=== PATIENT | female | born 1985 | race Hispanic/Latino ===

== ENCOUNTER 2018-01-18 09:53 | Emergency (ER) | payer OTHER ==
[2018-01-18 10:06] VITALS: BMI 30.1
[2018-01-18] MEDS ORDERED: Betamethasone Soluspan 30 mg/5mL Inj Susp IM ONE (10:12)
== END 2018-01-18 12:00 | disposition home or self-care (01) ==
LOC: H.EROB2 09:53
DX: O40.3XX0 Polyhydramnios, third trimester, not applicable or unspecified (principal); Z3A.33 33 weeks gestation of pregnancy; Z23 Encounter for immunization
CPT/HCPCS: 96372; 99281; J0702

== ENCOUNTER 2018-01-19 10:52 | Emergency (ER) | payer OTHER ==
[2018-01-19 11:30] VITALS: BMI 39.4
[2018-01-19] MEDS: Betamethasone Soluspan 30 mg/5mL Inj Susp IM ONE (11:56)
[2018-01-19 17:09] VITALS: BP 105/58; PULSE 58; RESP 17; O2SAT 100
--- NOTE | 2018-01-20 09:11 | OBHP ---
Datetime: 01/19/2018 12:21 IP Adm Impression: , intrauterine IP Chief Complaint Other: Betamethasone Admit Comment, IP Provider: A 32 yo f 33.3wk who present for her secound shot of Betamethasone. Pt is receiving the betamethasone due to polyhydramnios. Pt denies any sign of fever, chills, chest pain, sob, abd pain, diarrhea, constipation, or any other symptoms. Pt denies any side effect of medication. Problems Denies PMH Denies PSH Laparoscopic appendectomy Medications PNV Allergies NKDA Social Denies tobacco, alcohol or drug use during the . OBJECTIVE Vitals reviewed No labs available ASSESSMENT/PLAN: 32 year old G1 at 33 weeks sent to triage for sec dose of betamethasone shot at 3 3 weeks secondary to polyhydramnios Pt will recieve injection and be discharged home. Igor Shaw PGY1 Pelvic Type - PN: Adequate Extremities - PN: Normal Abdomen - PN: Normal Back - PN: Normal Breast - PN: Not Done Lungs - PN: Normal Heart - PN: Normal Thyroid - PN: Normal Neurologic - PN: Normal HEENT - PN: Normal General - PN: Normal Gestation - Est Wks by US: 33.3 Vital Signs Provider: Reviewed; Within Normal Limits Genitourinary Exam: Normal DTRs - PN: Normal Datetime: 01/18/2018 11:00 IP Admit Plan: Discharge home IP Fetus A Comments: Reactive NST FHR - Baseline A Provider: 130 NICHD Variability Prov Fetus A: Moderate 6-25bpm NICHD Accel Fetus A IP Provider: 15X15 NICHD Decel Fetus A IP Provider: None
== END 2018-01-19 13:00 | disposition home or self-care (01) ==
LOC: H.EROB2 10:52 → H.L&D 10:55 → H.EROB2 13:00
DX: O40.3XX0 Polyhydramnios, third trimester, not applicable or unspecified (principal); Z3A.33 33 weeks gestation of pregnancy; Z23 Encounter for immunization
CPT/HCPCS: 96372; 99281; J0702

== ENCOUNTER 2018-01-26 12:58 | Emergency (ER) | payer OTHER ==
[2018-01-26 19:37] VITALS: BP 129/76; PULSE 69; RESP 18
--- NOTE | 2018-01-27 09:19 | OBHP ---
Datetime: 01/26/2018 15:54 IP Adm Impression: No Active Labor IP Admit Plan: Discharge home Admit Comment, IP Provider: PT is a 34.3 wk was sent from [facility]. Pt spoke with Dr Contreras and she s ent her here to be evaluated. Pt denies contraction, vag bleed, discharge, gush of fluid or any other symptoms. ROS negative exept mentioned in HPI OBGYN Dr Contreras med: PNV PMH none PSH none PFH none Social Denies smoke/drink drug use 15:00 Assessment and plan PT is 34.3 wk present due to placenta change. monitoring strip is reassuring. PT is not in acute distress PT will discharge home Recommend BPP for tomorrow Igoravtar Shaw PGY1 Addendum: heart tracing category 1 with good baseline variability and positive accelerations. I called and discussed case with MFM. As per MFM recommendations, plan to discharge patient home today and h ave patient follow up for repeat BPP tomorrow. I discussed plan with patient and all patient question s answered. [place] Pelvic Type - PN: Not Done Extremities - PN: Normal Abdomen - PN: Normal Back - PN: Normal Breast - PN: Not Done Lungs - PN: Normal Heart - PN: Normal Thyroid - PN: Normal Neurologic - PN: Normal HEENT - PN: Normal General - PN: Normal FHR - Baseline A Provider: 140 Gestation - Est Wks by US: 34.3 Genitourinary Exam: Normal DTRs - PN: Normal
== END 2018-01-26 15:30 | disposition home or self-care (01) ==
LOC: H.EROB2 12:58 → H.L&D 13:01 → H.EROB2 15:30
DX: O43.93 Unspecified placental disorder, third trimester (principal); Z3A.34 34 weeks gestation of pregnancy

== ENCOUNTER 2018-01-30 07:54 | Inpatient (IN) | payer OTHER ==
[2018-01-30 08:37] VITALS: BMI 30.1
[2018-01-30] MEDS ORDERED: Lactated Ringer's 1,000 ML IV ONE (08:42)
[2018-01-30] MEDS ORDERED: Oxytocin 30 units/LR 500ML 30 UNITS/500 ML BAG IV ONE ×2 (08:42→09:00)
[2018-01-30] MEDS ORDERED: Lidocaine 1% Inj (20ml) ONE (08:44)
[2018-01-30] MEDS ORDERED: Lactated Ringer's 1,000 ML IV SCH ×2 (08:45→13:17)
[2018-01-30] MEDS ORDERED: Benzocaine/Menthol SPRAY TOP PRN ×2 (09:05→13:17)
--- NOTE | 2018-01-30 09:16 | OBDS ---
MATERNAL INFORMATION Provider Comments: over intact perineum precipitously, in NIRMALA presentation followed by shoulder s and rest of infant, mouth and nose suctioned on mother's chest, cord clamped and cut, cord blood ob tained, placenta delivered spontaneously, fundus firm, no lacerations noted for repair, EWS=[id number] LABOR SUMMARY EDC: 03/06/2018 00:00
--- NOTE | 2018-01-30 09:48 | OBADHP ---
Datetime: 01/30/2018 08:22 Admit Comment, IP Provider: 32 y/o with IUP at EGA 35 wks by 1st trimester US with FLAVIO 03/04, who presntes to EDOB with c/o a gush of vag fluid (LOF) noted at 6:20 AM and unterine CONTX елена t started at 7AM and were increasing in intensity and frequency to Q3min. Patient reports +FM. Faby t reports h/o polyhidramnios during this with f/u by MFM Dr Jeong, she states she receiv ed steroids injection x 2 doses for this reason. Patient denies VB, [place], blurry vision, palpitations, CP,SOB, N/V, dysuria or chills/fever. ROS: unremarkable, except as per HPI. care provider: Dr Contreras OBGYN: Denies STI PMH: denies FMH: denies SurgH: appendectomy. ALL: NKA MEDS: PN VIt LABS: HIV neg, HB neg, Rubella +/immune, GC/CL neg, RPR nonreactive, ABO A+/ab-. PE GEN: Unconfortable, NAD. HEENT: NCAT RESP: CTA b/l CV: RRR, S1 S2 normal ABD: Gravid EXT: no edema PElvic: performed by attending Dr Contreras: Cervix 10CM, EFF 100% A/P 32 y/o with IUP at EGA 35 wks by 1st trimester US with FLAVIO , who presents with ROM at 6:20AM and Uterine CONTx Q3min, with cervix dilated 10 cm in active labor. -Admit to L_D -Monitor maternal VS -Monitor FHR -IVF -CBC, Type and screen -Notify Pediatric MD Case discussed with attending Dr Diane Hackett MD PGY1 Addendum by Dr. Contreras: I have evaluated the patient independently and I agree with the above. THe patient delivered precipitously - see delivery note Comments, ACOG Physical Exam: see admit comment IP Hx Assessment: The History has been Reviewed and is Current Vital Signs Provider: Reviewed IP Chief Complaint: Uterine contractions; Suspected ruptured membranes EGA AdmitDate IP: 35.0 IP Adm Impression: , intrauterine IP Admit Plan: Admit to unit Datetime: 01/30/2018 08:19 Extremities - PN: Normal Abdomen - PN: Normal Lungs - PN: Normal Heart - PN: Normal HEENT - PN: Normal General - PN: Normal Dilatation, Provider: 10 Effacement, Provider: 100 Datetime: 01/26/2018 15:54 Pelvic Type - PN: Not Done Back - PN: Normal Breast - PN: Not Done Thyroid - PN: Normal Neurologic - PN: Normal FHR - Baseline A Provider: 140 Gestation - Est Wks by US: 34.3 Genitourinary Exam: Normal DTRs - PN: Normal Datetime: 01/19/2018 12:21 IP Chief Complaint Other: Betamethasone Datetime: 01/18/2018 11:00 IP Fetus A Comments: Reactive NST NICHD Variability Prov Fetus A: Moderate 6-25bpm NICHD Accel Fetus A IP Provider: 15X15 NICHD Decel Fetus A IP Provider: None
[2018-01-30 11:18] LABS: BASO % 0.2 % (0.0-2.0); EOS % 0.3 % (0.0-4.0); HEMOGLOBIN 12.5 g/dL (12.0-16.0); LYMPH # 3.7 K/uL (1.0-4.3); LYMPH % 24.2 % (20.0-40.0); MEAN CELL VOLUME 98.5 fl (81.0-99.0); MEAN CORPUSCULAR HEMOGLOBIN 32.4 pg (27.0-31.0); MEAN CORPUSCULAR HGB CONC 32.9 g/dL (33.0-37.0); MEAN PLATELET VOLUME 8.8 fl (7.2-11.7); MONO # 0.7 K/uL (0.0-0.8); MONO % 4.5 % (0.0-10.0); NEUT # 10.7 K/uL (1.8-7.0); NEUT % 70.8 % (50.0-75.0); RBC 3.87 Mil/uL (3.80-5.20); RED CELL DISTRIBUTION WIDTH 12.4 % (11.5-14.5); WHITE BLOOD COUNT 15.2 K/uL (4.8-10.8)
[2018-01-31 06:06] LABS: BASO % 0.2 % (0.0-2.0); EOS % 0.1 % (0.0-4.0); HEMOGLOBIN 11.5 g/dL (12.0-16.0); LYMPH # 2.8 K/uL (1.0-4.3); LYMPH % 19.3 % (20.0-40.0); MEAN CELL VOLUME 98.1 fl (81.0-99.0); MEAN CORPUSCULAR HEMOGLOBIN 32.7 pg (27.0-31.0); MEAN CORPUSCULAR HGB CONC 33.3 g/dL (33.0-37.0); MEAN PLATELET VOLUME 8.3 fl (7.2-11.7); MONO # 0.8 K/uL (0.0-0.8); MONO % 5.5 % (0.0-10.0); NEUT # 10.9 K/uL (1.8-7.0); NEUT % 74.9 % (50.0-75.0); NRBC % 0.1 % (0.0-0.0); RBC 3.53 Mil/uL (3.80-5.20); RED CELL DISTRIBUTION WIDTH 12.5 % (11.5-14.5); WHITE BLOOD COUNT 14.6 K/uL (4.8-10.8)
--- NOTE | 2018-01-31 09:05 | OBPPN ---
Datetime: 01/31/2018 09:03 PP Pain Prov: Within normal limits PP Nausea Prov: Denies PP Flatus Prov: Yes PP Breasts Prov: Normal PP Heart Prov: Normal PP Lungs Prov: Normal PP Abdomen/Uterus Prov: Normal PP Lochia Prov: Normal PP Vulva/Perineum Prov: Normal PP CVA Tenderness Prov: Normal PP Extremities Prov: Normal PP Progress Prov: Normal PP Impression Prov: Normal progression PP Plan Prov: Continue present management PP Progress Note Prov: H/H A: S/P day1 PLAN: cont care anticipate discharge in AM
--- NOTE | 2018-02-01 12:03 | OBPPN ---
Datetime: 02/01/2018 12:01 PP Pain Prov: Within normal limits PP Nausea Prov: Denies PP Flatus Prov: Yes PP Breasts Prov: Not Done PP Heart Prov: Normal PP Lungs Prov: Normal PP Abdomen/Uterus Prov: Normal PP Lochia Prov: Not Done PP Vulva/Perineum Prov: Not Done PP CVA Tenderness Prov: Normal PP Extremities Prov: Normal PP Impression Prov: Normal progression PP Plan Prov: Discharge PP Progress Note Prov: Patient cleared for discharge Vital Signs Provider PP: Reviewed
--- NOTE | 2018-02-01 12:06 | OBDCSUM ---
Datetime: 01/26/2018 15:19 Follow up at, Provider: [facility] Discharge Instructions, Provider: Routine instructions given Discharge Diagnosis, Provider: Term Delivered Follow up in weeks, Provider: in 4 to 6 weeks. Contraception discussed, Prov: Yes Disch Activity Restrictions: Nothing in vagina - [place], tampons, douche Discharge Comment, Provider: Patient cleared for discharge Contraception after Delivery: Undecided
[2018-02-01 19:08] VITALS: BP 128/74; PULSE 81; RESP 20; TEMP 98.2
== END 2018-02-01 14:00 | disposition home or self-care (01) | DRG 807 ==
LOC: H.EROB2 07:54 → H.L&D 08:17 → H.EROB2 08:41 → H.L&D 08:42 → H.OB/GYN 11:30
PROVIDERS: ADMIT Obstetrics & Gynecology; ATTEND Obstetrics & Gynecology
PROC: 10E0XZZ Delivery of Products of Conception, External Approach (ICD-10-PCS; principal; 2018-01-30)
PROC: 4A1HXCZ Monitoring of Products of Conception, Cardiac Rate, External Approach (ICD-10-PCS; 2018-01-30)
DX: O60.14X0 Preterm labor third trimester with preterm delivery third trimester, not applicable or unspecified (principal); O62.3 Precipitate labor; Z37.0 Single live birth; Z3A.35 35 weeks gestation of pregnancy